=== PATIENT | female | born 1950 | race Caucasian/White ===

== ENCOUNTER 2020-04-30 06:17 | Inpatient (IN) | payer MEDICARE, OTHER ==
[~2020-04-30] VITALS: Ht 154.9 cm; Wt 95.3 kg
[2020-04-30] VITALS (9 sets, daily range): BP systolic 88–144; BP diastolic 53–75; BMI 39.4
[2020-04-30] MEDS ORDERED: GLIMEPIRIDE1 MG PO (06:26)
[2020-04-30] MEDS ORDERED: TRADJENTA5 MG PO (06:26)
[2020-04-30] MEDS ORDERED: COZAAR50 MG PO (06:27)
[2020-04-30] MEDS ORDERED: PROPRANOLOL HCL20 MG PO (06:27)
[2020-04-30] MEDS ORDERED: ALDACTONE25 MG PO (06:28)
[2020-04-30] MEDS ORDERED: MOBIC7.5 MG PO (06:28)
[2020-04-30] MEDS ORDERED: BAYER CHEWABLE81 MG PO (06:28)
[2020-04-30] MEDS ORDERED: NEXIUM20 MG (06:29)
[2020-04-30] MEDS ORDERED: VENTOLIN HFA [SP8 GM INH (06:30)
[2020-04-30] MEDS ORDERED: LASIX40 MG (06:30)
[2020-04-30 06:39] LABS: BASOPHILS 0.2 % (0-2); EOSINOPHILS 3.7 % (0-7); HEMATOCRIT 41.1 % (36.0-48.0); HEMOGLOBIN 13.3 g/dL (12-16); IMMATURE GRANULOCYTES 0.2 % (0-5); LYMPHOCYTES 30.3 % (15-50); MCH 31.4 pg (26.0-34.0); MCHC 32.4 g/dL (31.0-37.0); MCV 96.9 fL (80.0-100.0); MEAN PLATELET VOLUME 11.6 fL (7.4-10.4); NEUTROPHILS 57.6 % (40-80); PLATELET COUNT 150 10x3/uL (130-400); RBC 4.24 10x6/uL (4.00-5.40); RDW 13.2 % (11.5-14.5)
[2020-04-30 06:45] LABS: CALC OSMOLALITY 279 mosm/kg (275-300); CALCIUM 9.5 mg/dL (8.5-10.1); CARBON DIOXIDE 29.4 mmol/L (21.0-32.0); CHLORIDE - SERUM 104 mmol/L (98-107); CREATININE - SERUM 0.9 mg/dL (0.6-1.3); GLUCOSE 129 mg/dL (74-106); POTASSIUM - SERUM 4.6 mmol/L (3.5-5.1); SODIUM 138 mmol/L (136-145); UREA NITROGEN 19 mg/dL (7-18); eGFR NON AFRICAN AMERICAN 66 mL/min (90-120)
[2020-04-30 06:53] LABS: INR 0.91 (0.85-1.17); PROTIME 12.2 SECONDS (11.6-15.0)
[2020-04-30 07:06] LABS: ALBUMIN 3.4 g/dL (3.4-5.0); ALKALINE PHOSPHATASE 77 U/L (30-120); ALT (SGPT) 24 U/L (10-68); BILIRUBIN - TOTAL 0.16 mg/dL (0.2-1.3); CREATINE KINASE 108 UL (21-215); PRO BNP 219 pg/mL (0-125); PROTEIN - SERUM 7.4 g/dL (6.4-8.2); THYROID STIMULATING HORMONE 1.18 uIU/mL (0.36-3.74); TROPONIN-I < 0.017 ng/mL (0.000-0.060)
--- NOTE | 2020-04-30 08:00 | NUR ---
RECEIVED TO ROOM 1213. A/O X3. NO C/O AT THIS TIME. VSS. SKIN IS INTACT WITHOUT REDNESS. NEURO CHECKS WNL. DENIES NEEDS. PAIN CONTROLLED AT THIS TIME. REFUSED TO LIE DOWN R/T INCREASED PAIN. WILL MONITOR.
--- NOTE | 2020-04-30 08:30 | NUR ---
UP TO BR WITH ONE PERSON MIN ASSIST. VOIDED CLEAR YELLOW URINE WITHOUT DIFFICULTY. SKIN CARE PER SELF.
--- NOTE | 2020-04-30 09:57 | NUR ---
REQUESTED AND GIVEN 4MG MORPHINE SLOW IVP FOR C/O PAIN LEVEL 10 WITH ACTIVITY. WILL MONITOR.
--- NOTE | 2020-04-30 11:01 | NUR ---
UP TO BR WITH ONE PERSON MIN ASSIST. VOIDED 200cc CLEAR YELLOW URINE. SPECIMEN SENT TO LAB PER ORDERS. GIVEN SURGERY BATH AT THIS TIME. REQUESTED AND GIVEN 4MG ZOFRAN WITH 0.5MG DILAUDID SLOW IVP FOR CONTINUED C/O PAIN LEVEL 8. WILL MONITOR. POSITIONED IN CHAIR AT BEDSIDE WITH RIGHT ARM SUPPORTED ON PILLOWS. C/O INTENSE NECK PAIN FROM SLING. WILL MONITOR.
[2020-04-30 12:14] LABS: BILIRUBIN NEGATIVE (NEGATIVE); GLUCOSE NEGATIVE (NEGATIVE); KETONE NEGATIVE (NEGATIVE); NITRITE NEGATIVE (NEGATIVE); SPECIFIC GRAVITY 1.015 (1.005-1.020); UROBILINOGEN NORMAL (NORMAL)
--- NOTE | 2020-04-30 13:30 | NUR ---
UP TO BR WITH ONE PERSON MIN ASSIST. HAD SMALL BM AND CLEAR YELLOW URINE. SKIN CARE PER STAFF.
--- NOTE | 2020-04-30 14:27 | NUR ---
REQUESTED AND GIVEN 0.5 MG DILAUDID SLOW IVP FOR C/O RIGHT SHOULDER LEVEL 7. WILL MONITOR.
--- NOTE | 2020-04-30 18:00 | NUR ---
REQUESTED AND GIVEN 0.5MG DILAUDID WITH 4MG ZOFRAN SLOW IVP FOR C/O PAIN LEVEL 8. WILL MONITOR. DAUGHTER AT BEDSIDE. NO CHANGES NOTED.
--- NOTE | 2020-04-30 18:58 | NUR ---
REC'D REPORT FROM JAYDEN GONZALES. PATIENT SITTING UP IN CHAIR WITH NO S/S OF DISTRESS. GUEST AT BEDSIDE. PATIENT AND GUEST DENY NEEDS AT THIS TIME. ENCOURAGED THE PATIENT TO CALL IF SHE HAS NEEDS. WILL CONTINUE TO MONITOR.
--- NOTE | 2020-04-30 20:48 | NUR ---
PATIENT TAKEN TO SURGERY
--- NOTE | 2020-04-30 22:56 | NUR ---
REC'D PATIENT FROM PACU. PATIENT ON 3L NC AND VSS. DAUGHTER AT BEDSIDE. PATIENT DENIES NEEDS.
--- NOTE | 2020-04-30 23:25 | NUR ---
PATIENT WAS ASSISTED TO RR PER HER REQUEST. PATIENT VOIDED 100ML POSTOP. PATIENT REQUESTED TO SIT IN CHAIR TO EAT. DENIES OTHER NEEDS. DAUGHTER AT BEDSIDE. VSS.
[2020-05-01 00:04] VITALS: BP 125/62
[2020-05-01 00:30] VITALS: BP 110/41
[2020-05-01 01:00] VITALS: BP 110/41
[2020-05-01 02:00] VITALS: BP 120/49
[2020-05-01 04:00] VITALS: BP 109/43
[2020-05-01 06:59] LABS: BASOPHILS 0.1 % (0-2); EOSINOPHILS 0 % (0-7); HEMATOCRIT 39.2 % (36.0-48.0); HEMOGLOBIN 12.3 g/dL (12-16); IMMATURE GRANULOCYTES 0.1 % (0-5); MCH 30.8 pg (26.0-34.0); MCHC 31.4 g/dL (31.0-37.0); MCV 98.2 fL (80.0-100.0); MONOCYTES 3.1 % (2-11); NEUTROPHILS 87.7 % (40-80); PLATELET COUNT 144 10x3/uL (130-400); RBC 3.99 10x6/uL (4.00-5.40); RDW 13.1 % (11.5-14.5)
[2020-05-01 07:10] LABS: WBC 8.6 10x3/uL (4.8-10.8)
--- NOTE | 2020-05-01 07:15 | NUR ---
AWAKE AND ALERT. ORIENTED X3. NO C/O AT THIS TIME. LUNGS ARE CLEAR BILATEARLLY, NO COUGH NOTED. REPORTS USING IS INSTRUCTED. SKIN IS INTACT WITHOUT REDNESS EXCEPT INCISION TO RIGHT ARM WHICH HAS A DRY INTACT DRESSING IN PLACE. SL TO LEFT HAND IS PATENT WITHOUT REDNESS AT INSERTION SITE. SITTING UP IN CHIAR AT BEDSIDE SO SCD'S OFF AT THIS TIME. DENIES NEEDS.
[2020-05-01 07:29] LABS: ALBUMIN 3.3 g/dL (3.4-5.0); ANION GAP 14.6 mmol/L (8-16); BILIRUBIN - TOTAL 0.21 mg/dL (0.2-1.3); CALCIUM 8.1 mg/dL (8.5-10.1); CARBON DIOXIDE 25.5 mmol/L (21.0-32.0); POTASSIUM - SERUM 5.1 mmol/L (3.5-5.1); PROTEIN - SERUM 6.6 g/dL (6.4-8.2)
[2020-05-01] MEDS ORDERED: OXYCODONE HCL5 M1 PO (07:38)
[2020-05-01] MEDS ORDERED: KEFLEX500 MG PO (07:38)
[2020-05-01] MEDS ORDERED: VISTARIL50 MG PO (07:39)
--- NOTE | 2020-05-01 08:30 | NUR ---
UP TO BR WITH ONE PERSON MIN ASSIST. VOIDED CLEAR YELLOW URINE WITHOUT DIFFICULTY. REFUSED BREAKFAST THIS AM. TOOK AM MEDS WITHOUT DIFFICULTY. DENIES NEEDS.
[2020-05-01 08:48] VITALS: BP 100/52
[2020-05-01 10:37] VITALS: Ht 154.9 cm; Wt 95.3 kg
--- NOTE | 2020-05-01 12:15 | NUR ---
DISCHARGED TO HOME WITH FAMILY AMBULATORY. DISCHARGE INSTRUCTIONS GIVEN BOTH VERBALLY AND WRITTEN. ALL QUESTIONS ANSWERED. PATIENT AND DAUGHTER VERBALIZED UNDERSTANDING OF SAME. NEEDED PRESCRIPTIONS GIVEN TO PATIENT. SL TO LEFT HAND D/C WITH CATHETER INTACT. ALL BELONGINGS WITH PATIENT.
--- NOTE | 2020-05-01 20:26 | MORECARE ---
CASE MANAGEMENT DISCHARGE SUMMARY PATIENT: CASSI AYERS UNIT: [id number] ADM DATE: 04/30/20 AGE: 69 : 52 SEX: F ROOM/BED: D.1213 AUTHOR: DELORES BUTTERFIELD PHYSICIAN: REFERRING PHYSICIAN: MIKE GELLER MD DATE OF SERVICE: 05/01/20 Discharge Plan Patient Name: CASSI AYERS [facility] [facility] 1950 Planned Disposition: Home Anticipated Discharge Date: Discharge Date: 05/01/2020 Expected LOS: Initial Reviewer: [email or web address] Initial Review Date: 05/01/2020 Generated: 05/01/20 9:26 pm DCPIA - Discharge Planning Initial Assessment Updated by [email or web address]: Ny Nunez on 05/01/20 8:25 pm * Is the patient Alert and Oriented? Yes * How many steps to enter\exit or inside your home? * PCP NO PCP * Pharmacy [facility] * Preadmission Environment Home with Family * ADLs Independent * Other Equipment SLING * List name and contact numbers for known caregivers / representatives who currently or will assist patient after discharge: LONDON BRADY - DAUGHTER- [phone] * Verbal permission to speak to the caregivers and representatives has been obtained from the patient. Yes * Community resources currently utilized None * Additional services required to return to the preadmission environment? No * Can the patient safely return to the preadmission environment? Yes * Has this patient been hospitalized within the prior 30 days at any hospital? No Patient Name: CASSI AYERS Page [id number] at 2025 All edits/amendments must be made on the electronic document DICTATION DATE: 05/01/202025 SOCIAL MEDIA MANAGER: MARCOS 05/01/202025 RPT#: [id number] DC DATE:05/01/20 STATUS: DIS IN [facility] [address] [place] [address] END OF REPORT
--- NOTE | 2020-05-01 20:33 | MORECARE ---
CASE MANAGEMENT DISCHARGE SUMMARY PATIENT: CASSI AYERS UNIT: [id number] ADM DATE: 04/30/20 AGE: 69 : 52 SEX: F ROOM/BED: D.1213 AUTHOR: GREER,DOC PHYSICIAN: REFERRING PHYSICIAN: MIKE GELLER MD DATE OF SERVICE: 05/01/20 Discharge Plan Patient Name: CASSI AYERS Facility: [facility]:[place] : 1950 Planned Disposition: Home Anticipated Discharge Date: Discharge Date: 05/01/2020 Expected LOS: Initial Reviewer: [email or web address] Initial Review Date: 05/01/2020 Generated: 05/01/20 9:32 pm Comments DCP- Discharge Planning Updated by [email or web address]: Ny Nunez on 05/01/20 7:[address] Patient Name: CASSI AYERS Admission Status: ER Accout number: [id number] Admission Date: 04-30-2020 : 1950 Admission Diagnosis: Attending: MIKE GELLER Current LOS: 1 Anticipated DC Date: Planned Disposition: Home Primary Insurance: MEDICARE A & B Discharge Planning Comments: CM met with patient to complete initial dc planning assessment. CM educated patient on the CM role and verbal consent given by patient to complete assessment. Patient lives at home with family. Patient is independent. At discharge patient plans to return home and feels this is a safe discharge. CM discussed availability of home health, rehab services, and medical equipment. Patient will have family to transport home. Patient denied known discharge needs at this time. CM will continue to follow and will assist as needed with dc plans/needs. Box Loader: Ny Nunez DCPIA - Discharge Planning Initial Assessment Updated by [email or web address]: Ny Nunez on 05/01/20 8:25 pm * Is the patient Alert and Oriented? Yes * How many steps to enter\exit or inside your home? * PCP NO PCP * Pharmacy [facility] * Preadmission Environment Home with Family * ADLs Independent * Other Equipment SLING * List name and contact numbers for known caregivers / representatives who currently or will assist patient after discharge: LONDON BRADY - [facility]- [phone] * Verbal permission to speak to the caregivers and representatives has been obtained from the patient. Yes * Community resources currently utilized None * Additional services required to return to the preadmission environment? No * Can the patient safely return to the preadmission environment? Yes * Has this patient been hospitalized within the prior 30 days at any hospital? No Last DP export: 05/01/20 7:26 pm Patient Name: CASSI AYERS Page [phone] at 2033 All edits/amendments must be made on the electronic document DICTATION DATE: 05/01/202031 BRACELET FORM COVERER: MARCOS 05/01/202031 RPT#: [id number] DC DATE:05/01/20 STATUS: DIS IN [facility] [address] [place] [address] END OF REPORT
--- NOTE | 2020-05-02 07:05 | OP ---
PATIENT NAME: CASSI JAUREGUI MEDICAL RECORD: [id number] :54 LOCATION:D. D.1213 ADMISSION DATE:04/30/20 SURGEON: NEO WEATHERS DO DATE OF OPERATION: 04/30/2020 PROCEDURE PERFORMED: Right humerus open reduction internal fixation. PREOPERATIVE DIAGNOSIS: Right humeral shaft fracture. POSTOPERATIVE DIAGNOSIS: Right humeral shaft fracture. INDICATIONS: Ms. Jauregui is a 69-year-old female who fell out of her bed sometime this morning and came to the ER. She had a right reverse total shoulder done in September in [place]. I did not break through the stem, but right in the mid shaft. I informed her of the risks and benefits of this procedure including infection, bleeding, damage to nerves and vessels, malunion, nonunion, damage to the radial nerve especially, continued pain, need for further surgery and she signed the consent. SURGEON: Neo Weathers DO DESCRIPTION OF PROCEDURE: The patient was taken to the operative suite, laid in supine position, given general anesthetic and sedated and intubated. She was given 2 grams Ancef preoperatively. The right upper extremity was then prepped and draped in sterile fashion. Timeout was performed. Everyone was in agreeance with the correct side, site, patient and procedure. We then began by dissecting down the anterior lateral aspect of the humerus through the brachialis muscle, splitting the muscle and down to the humeral shaft. The humeral shaft was then cleared off. The fracture was reduced and the plate was put on and pinning it with a K-wire proximally and got an x-ray to assure that it was in good alignment, it was to get at least 3 screws proximal and distal to the fracture site. The 8 hole plate was what we used. I then drilled 2 compression screws on either side of the fracture and cinched them down. I then put a second compression screw on the dorsal aspect, loosened the first one and then tied both of them down sequentially, getting nice compression of the fracture site. She had a butterfly piece that was put in the fracture site prior to compressing that as well. Then, locking screws were placed in the plate to save the most distal hole. There was 6 screws total put in the plate. I did switch out one proximal screw from the 22-24, getting better bite. The butterfly piece was tied in with #2 Ethibond by drilling a hole through with a K-wire and running the suture through it and tied into the plate and reducing in nicely. I took x-rays in AP and lateral and this appeared to be in good position and adequately reduced. We then irrigated thoroughly and then put on vancomycin and tobramycin powder and closed the skin with 2-0 Vicryl in inverted interrupted fashion and ZipLine placed on the skin. This was done with the assistance of César Rollins, certified registered nurse anesthetist. He assisted with retraction and closing. She was then dressed with Adaptic, 4 x 4s, ABD and cast padding and an Crow wrap from the hand, all the way up to the proximal humerus. She was then awakened and taken to recovery in stable condition. BLOOD LOSS: Approximately 150 mL. COMPLICATIONS: None. TRANSINT:[id number] Voice Confirmation ID: [id number] DOCUMENT ID: [id number] OPERATIVE REPORT [id number] CASSI JAUREGUI MICHAEL D, DO at 0705 CC: [id number] DICTATION DATE: 04/30/202238 DINING ROOM BUSSER: 05/01/20 0945 DIS IN 05/01/20 [facility] [address] [place] [address]
== END 2020-05-01 12:36 | disposition home or self-care (01) | DRG 494 ==
LOC: D.ER 06:17 → D.M3 06:32
PROVIDERS: Emergency Medicine; Family Medicine; Orthopaedic Surgery; ADMIT Family Medicine; ATTEND Family Medicine
PROC: 0PSF04Z Reposition Right Humeral Shaft with Internal Fixation Device, Open Approach (ICD-10-PCS; principal; 2020-04-30 16:30)
DX: S42.301A Unspecified fracture of shaft of humerus, right arm, initial encounter for closed fracture (principal); E66.9 Obesity, unspecified; E11.65 Type 2 diabetes mellitus with hyperglycemia; W19.XXXA Unspecified fall, initial encounter; F17.200 Nicotine dependence, unspecified, uncomplicated

== ENCOUNTER 2020-05-23 08:20 | Day surgery (SDC) | payer MEDICARE, OTHER ==
[~2020-05-23] VITALS: Ht 154.9 cm; Wt 93.0 kg
[~2020-05-23 08:20] MED LIST: ALDACTONE25 MG PO; BAYER CHEWABLE81 MG PO; COZAAR50 MG PO; GLIMEPIRIDE1 MG PO; KEFLEX500 MG PO; LASIX40 MG; MOBIC7.5 MG PO; NEXIUM20 MG; OXYCODONE HCL5 M1 PO; PROPRANOLOL HCL20 MG PO; TRADJENTA5 MG PO; VENTOLIN HFA [SP8 GM INH; VISTARIL50 MG PO
[2020-05-23 08:54] LABS: ANION GAP 7.4 mmol/L (8-16); CALCIUM 9.2 mg/dL (8.5-10.1); CARBON DIOXIDE 34.8 mmol/L (21.0-32.0); CREATININE - SERUM 1.1 mg/dL (0.6-1.3); POTASSIUM - SERUM 4.2 mmol/L (3.5-5.1)
[2020-05-23 09:05] LABS: APTT 29.7 SECONDS (22.8-39.4); INR 0.98 (0.85-1.17)
[2020-05-23 09:06] LABS: BASOPHILS 0.2 % (0-2); EOSINOPHILS 4.9 % (0-7); HEMATOCRIT 39.8 % (36.0-48.0); HEMOGLOBIN 12.6 g/dL (12-16); IMMATURE GRANULOCYTES 0.2 % (0-5); LYMPHOCYTES 27.3 % (15-50); MCH 31.3 pg (26.0-34.0); MCHC 31.7 g/dL (31.0-37.0); MCV 98.8 fL (80.0-100.0); MONOCYTES 6.9 % (2-11); NEUTROPHILS 60.5 % (40-80); PLATELET COUNT 162 10x3/uL (130-400); RBC 4.03 10x6/uL (4.00-5.40); RDW 13.1 % (11.5-14.5); WBC 5.8 10x3/uL (4.8-10.8)
[2020-05-23 09:43] VITALS: BP 103/50; Ht 154.9 cm; Wt 93.0 kg
[2020-05-23] MEDS ORDERED: OXYCODONE HCL5 M1 PO (11:38)
[2020-05-23] MEDS ORDERED: VISTARIL50 MG PO (11:38)
[2020-05-23] MEDS ORDERED: KEFLEX500 MG PO (11:39)
--- NOTE | 2020-05-23 16:14 | NUR ---
1615 PULSE OX ON FORHEAD AND READING BETTER THAN ON FINGER
--- NOTE | 2020-05-23 18:56 | NUR ---
183 IV REMOVED AND INSTRUCTIONS GIVEN. PT ASSISTED WITH GETTING DRESSED AND ARM IN SLING. PAIN A 4/10 DOWN FROM A 9/10. PT INSTRUCTED TO GET A SLEEP APNEA TEST DONE. O2 SATS DROP TO MID 80S BUT RETURN QUICKLY. TO HIGH 90S. DENIES SOB BUT PT IS A SMOKER. INSTRUCTED PT TO SLEEP IN RECLINER TONIGHT.
--- NOTE | 2020-05-24 08:05 | OP ---
PATIENT NAME: CASSI JAUREGUI MEDICAL RECORD: [id number] :54 LOCATION:[facility] ADMISSION DATE: SURGEON: NEO WEATHERS DO DATE OF OPERATION: 05/23/2020 PROCEDURE PERFORMED: Revision right humeral shaft open reduction and internal fixation. PREOPERATIVE DIAGNOSIS: Failed open reduction internal fixation of the right humerus. POSTOPERATIVE DIAGNOSIS: Failed open reduction internal fixation of the right humerus. INDICATIONS: Ms. Jauregui is a 69-year-old female who fractured her right humerus approximately 3 weeks ago, she underwent ORIF and she broke through proximal 3 screws and again varus angulated. I informed her that this happen sometimes and that she would need to redo it. She will be at risk for infection, bleeding, damage to nerves and vessels in the area, continued pain, malunion, nonunion, failure of hardware, and she was okay with that as well as arm swelling, loss use of the arm and she signed the consent. SURGEON: Neo Weathers DO DESCRIPTION OF PROCEDURE: The patient was taken to the operative suite, laid in supine position, general anesthetic and intubated. She was given 2 grams of Ancef preoperatively. She was then moved over to the beach chair and put in the beach chair position. The right upper extremity was then prepped and draped in sterile fashion. Time out was performed. Everyone was in agreement with the correct side, site, patient, and procedure. I then began by going through the old incision. Careful dissection made down to the plate. I used the old plate that was on there to hold the reduction and then put an anterior small plate on the anterior humerus to hold the fracture. The old plate was then removed. I put longer plate down and put several locking screws along with compression screws throughout the plate and then changed out the anterior plate to the locking screws also in order to hold it in a very good position on AP and lateral, then put some StaGraft in the fracture site. She was irrigated out prior to this. She was then closed by César Rollins, certified surgical assistant branch manager with 2-0 Vicryl in inverted interrupted fashion and a ZipLine placed on the arm. The dressing was applied with Adaptic, 4 x 4s, and cast padding and then an Crow wrap from the hand up to the shoulder and put in a sling. She was awakened and taken to recovery in stable condition. Blood loss was approximately 200 mL. COMPLICATIONS: None. TRANSINT:[id number] Voice Confirmation ID: [id number] DOCUMENT ID: [id number] OPERATIVE REPORT [id number] CASSI JAUREGUI MICHAEL D, DO at 0805 CC: [id number] DICTATION DATE: 05/23/20 1347 FARM ASSISTANT: 05/23/20 2308 [facility] 05/23/20 [place] [address]
== END 2020-05-23 18:55 | disposition home or self-care (01) ==
LOC: D.OPS 08:20 → D.PAN 10:30 → D.OPS 11:00
PROVIDERS: Anesthesiology; ATTEND Orthopaedic Surgery
DX: S42.301A Unspecified fracture of shaft of humerus, right arm, initial encounter for closed fracture (principal); J45.909 Unspecified asthma, uncomplicated; K21.9 Gastro-esophageal reflux disease without esophagitis; E11.9 Type 2 diabetes mellitus without complications; Z79.84 Long term (current) use of oral hypoglycemic drugs; Z72.0 Tobacco use; X58.XXXA Exposure to other specified factors, initial encounter